=== PATIENT | female | born 1990 | race Caucasian/White ===

== ENCOUNTER 2023-07-14 04:13 | Emergency (ER) | payer MEDICAID ==
[~2023-07-14] VITALS: Ht 167.6 cm; Wt 113.5 kg
[2023-07-14 04:23] VITALS: O2SAT 97
[2023-07-14 06:54] LABS: CLARITY URINE CLOUDY (CLEAR); COLOR URINE YELLOW (YELLOW); GLUCOSE URINE NEGATIVE (NEGATIVE); KETONES URINE NEGATIVE (NEGATIVE); LEUKOCYTE ESTERASE URINE 2+ (NEGATIVE); NITRITE URINE NEGATIVE (NEGATIVE); OCCULT BLOOD URINE 2+ (NEGATIVE); PH URINE 6.5 (4.5-8.0); PROTEIN URINE NEGATIVE (NEGATIVE); SPECIFIC GRAVITY URINE 1.019 (1.005-1.030); UROBILINOGEN URINE 0.2 E.U./dL (0.2-1.0)
[2023-07-14 06:55] LABS: BASOPHILS % 0.5 % (0.0-2.0); EOSINOPHILS % 1.1 % (0.0-5.0); HEMOGLOBIN. 12.7 g/dL (12.0-16.0); LYMPHOCYTES % 24.5 % (20.0-50.0); MEAN CORPUSCULAR HEMOGLOBIN 32.1 pg (28.0-32.0); MEAN CORPUSCULAR HGB CONC 34.3 g/dL (31.0-37.0); MEAN CORPUSCULAR VOLUME 93.6 fL (81.0-99.0); MEAN PLATELET VOLUME 8.3 fl (7.4-10.4); MONOCYTES % 5.3 % (2.0-8.0); NEUTROPHILS % 68.6 % (40.0-76.0); PLATELET 226 x1000/uL (130-400); RED BLOOD CELL COUNT 3.96 mill/uL (4.2-5.4); RED CELL DISTRIBUTION WIDTH 14.1 % (11.6-14.6); WHITE BLOOD COUNT 6.2 x1000/uL (4.5-11.0)
[2023-07-14 07:01] LABS: CHLORIDE 107 mEq/L (98-107); POTASSIUM 3.7 mEq/L (3.5-5.1); SODIUM 135 mEq/L (136-145)
[2023-07-14 07:02] LABS: CARBON DIOXIDE 21 mEq/L (21-32)
[2023-07-14 07:03] LABS: CALCIUM 9.3 mg/dL (8.7-10.4)
[2023-07-14 07:08] LABS: CREATININE 0.5 mg/dL (0.6-1.0); GLUCOSE 87 mg/dL (70-105); UREA NITROGEN BLOOD 7 mg/dL (9-23)
[2023-07-14 07:19] LABS: B-HCG QUANTITATIVE 91336 mIU/mL (<3)
[2023-07-14 07:23] LABS: SQUAMOUS EPITHELIAL CELL URINE 1+ /lpf (RARE/1+)
[2023-07-14 07:25] LABS: RBC URINE 0-2 /hpf (0-2)
[2023-07-14 07:27] LABS: BACTERIA URINE NONE SEEN; TRICHOMONAS URINE 1+
[2023-07-14] MEDS: METRONIDAZOLE 500MG TABLET PO NR (07:56)
[2023-07-14 08:07] VITALS: BP 123/60; PULSE 96; RESP 20; TEMP 97.9
== END 2023-07-14 08:09 | disposition home or self-care (01) ==
LOC: ER 04:13
DX: O23.32 Infections of other parts of urinary tract in pregnancy, second trimester (principal); N39.0 Urinary tract infection, site not specified; Z3A.15 15 weeks gestation of pregnancy
CPT/HCPCS: 80048; 81003; 84702; 85025; 86850; 86900; 86901; 36415; 76805; 76810; 99284; Z7610 ×2